=== PATIENT | female | born 1955 | race Caucasian/White ===

== ENCOUNTER 2017-03-06 05:16 | Day surgery (SDC) | payer OTHER ==
[~2017-03-06] VITALS: Ht 170.2 cm; Wt 115.0 kg
[~2017-03-06 05:16] MED LIST: CLARITIN,ALAVAR10 MG PO; GLUCOPHAGE500 MG PO; PROAIR RESPICL90 MCG IH
[2017-03-06] MEDS ORDERED: VITAMIN B-6100 MG PO (05:56)
[2017-03-06 06:00] VITALS: BP 112/63
[2017-03-06 06:03] LABS: POINT-OF-CARE METER ID UU14174212
[2017-03-06 08:44] LABS: POINT-OF-CARE METER ID UU13113675
[2017-03-06 09:00] VITALS: BP 105/65
[2017-03-06 09:46] VITALS: BP 102/63
== END 2017-03-06 09:58 | disposition home or self-care (01) ==
LOC: SDC 05:16
PROVIDERS: Obstetrics & Gynecology Gynecologic Oncology
DX: N88.2 Stricture and stenosis of cervix uteri (principal); Z85.41 Personal history of malignant neoplasm of cervix uteri; N85.7 Hematometra; N81.10 Cystocele, unspecified; N81.6 Rectocele; E66.01 Morbid (severe) obesity due to excess calories; Z68.41 Body mass index [BMI] 40.0-44.9, adult; E11.9 Type 2 diabetes mellitus without complications; E78.5 Hyperlipidemia, unspecified; Z92.21 Personal history of antineoplastic chemotherapy; Z79.84 Long term (current) use of oral hypoglycemic drugs; J30.9 Allergic rhinitis, unspecified; Z91.030 Bee allergy status; Z91.018 Allergy to other foods; Z88.8 Allergy status to other drugs, medicaments and biological substances
CPT/HCPCS: 82948; 88305; J0690; J1100; J1885; J2250; J2405; J2765; J3010